=== PATIENT | female | born 1980 | race Caucasian/White ===

== ENCOUNTER → 2024-03-05 16:21 | Outpatient (REF) | payer OTHER, SELFPAY | LOC: PAVMRI 16:21 | PROVIDERS: ATTENDING PHYSICIAN Orthopaedic Surgery; FAMILY PHYSICIAN Physician Assistant Medical | DX: M54.50 Low back pain, unspecified (principal) | CPT/HCPCS: 72148 ==

== ENCOUNTER 2024-07-29 14:14 | Emergency (ER) | payer OTHER, SELFPAY ==
[2024-07-29 14:27] VITALS: BP 152/103
[2024-07-29 14:48] LABS: % Basophils 0.5 % (0-2); % Immature Granulocytes 0.5 % (0-0.5); % Lymphocytes 24.5 % (20.5-51.1); % Monocytes 5.7 % (1.7-9.3); % Neutrophils 67.8 % (42.2-75.2); Absolute Basophils 0.1 10^3/uL (0-0.2); Absolute Eosinophils 0.1 10^3/uL (0-0.7); Absolute Immature Granulocytes 0.1 10^3/uL (0-0.05); Absolute Lymphocytes 2.7 10^3/uL (1.2-3.4); Absolute Monocytes 0.6 10^3/uL (0.1-0.6); Absolute Neutrophils 7.5 10^3/uL (1.4-6.5); Hematocrit 40.2 % (37.0-47.0); Hemoglobin 13.9 g/dL (12.0-16.0); Mean Corp Hgb Conc. 34.6 g/dL (33.0-37.0); Mean Corpuscular Hgb 30.3 pg (27.0-31.0); Mean Corpuscular Volume 87.8 fL (81.0-99.0); Mean Platelet Volume 8.8 fL (7.4-10.4); Nucleated Red Blood Cells % 0 %; Platelet Count 402 10^3/uL (130-400); Red Blood Cell Count 4.58 10^6/uL (4.20-5.40); Red Cell Dist. Width 12.7 % (11.5-14.5)
[2024-07-29 15:08] LABS: Troponin I < 0.012 ng/ml
[2024-07-29 15:09] LABS: ALT (SGPT) 27 U/L (0-35); AST (SGOT) 26 U/L (14-36); Albumin 4.3 g/dl (3.5-5.0); Alkaline Phosphatase 96 U/L (38-126); Blood Urea Nitrogen 10 mg/dl (7-17); Calcium 10.1 mg/dl (8.4-10.2); Carbon Dioxide 29 mmol/L (22-30); Chloride 104 mmol/L (98-107); Glucose 98 mg/dl (70-99); Potassium 4.2 mmol/L (3.5-5.1); Sodium 140 mmol/L (135-145); Total Bilirubin 0.6 mg/dl (0.2-1.3); Total Protein 7.8 g/dl (6.3-8.2); eGFR > 60.00
[2024-07-29 16:20] VITALS: BP 133/88
--- NOTE | 2024-07-29 17:02 | ED.GENMED ---
History of Present Illness
General
Chief Complaint: Chest Pain
Source: patient
Exam Limitations: none
Time Seen by Provider: 07/29/24 16:20
Nursing documentation reviewed up to this point in time: agreed with
History of Present Illness
History of Present Illness:
43-year-old female with history of GERD, esophagitis, anxiety/depression, PTSD, migraines presents for mid to right chest pain off and on for the past 2 weeks but became constant today. She states while she was at work she felt 'out of it and
started getting stabbing pains in the mid chest area. She states now the area feels 'sore.' She states she has been fatigued and has been sleeping more. She states while sitting at work she felt 'disconnected' and the chest pain got worse. She
went to urgent care and they called EMS who brought her here.
She denies any overuse or injury. She denies feeling lightheaded or dizzy. She denies N/V/D/C. She denies abdominal pain. She denies UTI symptoms.
She did fly to [place] and back 2 weeks ago
No known sick contacts
She denies any aggravating or relieving factors.
Past History
Past History
ED Past Medical History: GERD, Psychiatric (Anxiety/depression, PTSD), Other (Obstipation, diarrhea, or urination. ) and Other (GERD, esophagitis)
ED Past Surgical History: Other (Stye)
Social History
Tobacco: Non-smoker
Alcohol: None
Personal:
Living: with family
Employment: Employed
Review of Systems
Review of Systems
Allergies reviewed?: Yes
All Other Systems: ROS reviewed and negative except as documented in HPI and ROS
Constitutional: Reports fatigue; Denies fever
EENT: Denies sore throat
Respiratory: Denies trouble breathing
Cardiac: Reports chest pain; Denies diaphoresis or palpitations
ABD/GI: Denies abdominal pain, nausea, vomiting, diarrhea, constipated or anorexia
: Denies dysuria, frequency or difficulty voiding
Musculoskeletal: Reports no symptoms
Skin: Reports no symptoms
Neurological: Reports no symptoms
Phy Exam
Physical Exam
Physical Exam:
GENERAL: No acute distress. A&Ox3.
CONSTITUTIONAL: Afebrile.
EYES: clear, conjunctivae normal
ENMT: moist mucus membranes, Pharynx nl
RESPIRATORY: Regular respirations, nonlabored, lungs clear.
CARDIOVASCULAR: Regular rate and rhythm, no murmurs, no rubs.
GI: Soft, nontender, normal BS
MUSCULOSKELETAL: Pain mid to lower right sternal costal border immediately reproducible with palpation. Moves with ease. Well perfused.
SKIN: Warm, dry, pink
PSYCH: Normal mood and affect. Well kept, interactive and appropriate
NEUROLOGIC: Awake, alert and oriented. No focal neurological deficits
Scores
Heart Score for Chest Pain Patients
STEMI patient?: Not applicable
Course
Orders/Labs/Results
Orders:
Orders
07/29/24 14:21
ECG [Electrocardiogram (*1)] Urgent
Reason for Study: Chest Pain
EKG- Treatment ONCE
07/29/24 14:36
Complete Blood Count/With Diff Urgent
Comprehensive Metabolic Panel Urgent
Troponin I Urgent
Abnormal Lab Results
07/29/24
14:36
WBC 11.0 H 10^3/uL
(4.8-10.8)
Plt Count 402 H 10^3/uL
(130-400)
Abs Immat Gran (auto) 0.1 H 10^3/uL
(0-0.05)
Absolute Neuts (auto) 7.5 H 10^3/uL
(1.4-6.5)
Creatinine 0.5 L mg/dL
(0.6-1.0)
07/29/24 14:36
07/29/24 14:36
Vital Signs
Initial and Last Documented VS:
Initial Vital Signs
Temp Pulse Resp BP Pulse Ox
98.0 F 73 20 152/103 95
07/29/24 14:27 07/29/24 14:27 07/29/24 14:27 07/29/24 14:27 07/29/24 14:27
Last Documented Vital Signs
Temp Pulse Resp BP Pulse Ox
98.0 F 73 17 133/88 99
07/29/24 14:27 07/29/24 16:30 07/29/24 16:30 07/29/24 16:20 07/29/24 17:27
MDM/Problems Addressed
Differential Diagnosis Includes:
ACS, IA, musculoskeletal pain, GERD
MDM/Problems Addressed:
43-year-old female with history of GERD, esophagitis, anxiety/depression, PTSD, migraines presents for mid to right chest pain off and on for the past 2 weeks but became constant today. She states while she was at work she felt 'out of it and
started getting stabbing pains in the mid chest area. She states now the area feels 'sore.' She states she has been fatigued and has been sleeping more. She states while sitting at work she felt 'disconnected' and the chest pain got worse. She
went to urgent care and they called EMS who brought her here.
She denies any overuse or injury. She denies feeling lightheaded or dizzy. She denies N/V/D/C. She denies abdominal pain. She denies UTI symptoms.
She did fly to [place] and back 2 weeks ago
No known sick contacts
She denies any aggravating or relieving factors.
Afebrile, NAD
EKG:NSR
CBC normal
CMP normal
Troponin normal
This is clearly musculoskeletal pain as it is immediately reproducible at the right costosternal border. Patient now states she has had costochondritis in the past and it feels similar.
She has also had GERD in the past and is requesting something to take for that. Rx for Protonix sent to her pharmacy.
*EKG
EKG Intrepretation Date: 07/29/24
Interpretation: normal
Heart Rate: 61
Rate: normal
Rhythm: sinus
Warner: normal axis
Interval: normal interval
QRS Pattern: normal QRS
Ischemia: no ischemia
*Critical Care Note
Total Time (30-74mins, 75-104mins- exclusive of procedures): Not Applicable
ED Attending Note
-
Portions of this chart may have been created with voice recognition software.� Occasional wrong word or��sound alike� substitutions may have occurred due to the inherent limitations of voice recognition software.
Discharge Plan
Departure
Patient Disposition: Home (Routine Discharge)
Date of Disposition: 07/29/24
Time of Disposition: 17:08
Patient with high blood pressure during this ER visit?: No
Condition: Good
Discharge Problem:
Acute costochondritis
Instructions: Costochondritis, Chest Pain That Is Not Caused by the Heart (DC), Acid Reflux and GERD in Adults (DC)
Prescriptions:
New
omeprazole 40 mg capsule,delayed release(DR/EC)
40 mg PO DAILY Qty: 30 0RF
No Action
sertraline [Zoloft] 100 mg Tablet
200 mg PO DAILY
prazosin 5 mg Capsule
5 mg PO HS
lorazepam [Ativan] 0.5 mg Tablet
0.25 mg PO PRN PRN (Reason: ANXIETY)
risperidone 1 mg Tablet
1.5 mg PO HS
prazosin 2 mg Capsule
2 mg PO DAILY
Referrals:
Chika Cao PA-C [Family Provider] - Call in 1-3 days for appt
Stand Alone Forms: Return to Work
Activity Restrictions/Additional Instructions:
As we discussed, I sent a prescription to your pharmacy for omeprazole, it may be [id number]. Try that when you have the reflux
Your exam is most consistent with costochondritis. Ibuprofen 600 mg, with food, up to 3 times a day as needed for pain. Avoid activities that aggravate the pain.
Interventions
Interventions:
*Risk Screen - Suicide Last Done: 07/29/24 14:27
*General Assessment Last Done: 07/29/24 14:27
*Neglect/Abuse Screening Last Done: 07/29/24 17:27
*ED- Fall Risk Assessment Last Done: 07/29/24 17:27
*ED COVID-19 Vaccine History Last Done: 07/29/24 17:27
*Nursing Disposition Last Done: 07/29/24 17:29
ED- Cardiac Assessment Last Done: 07/29/24 17:27
Discharge Date and Time
Discharge Date/Time: 07/29/24 17:30
Print Language: URDU
== END 2024-07-29 17:30 | disposition home or self-care (01) ==
LOC: EMR 14:14
PROVIDERS: Student in an Organized Health Care Education/Training Program; EMERGENCY PHYSICIAN Emergency Medicine; FAMILY PHYSICIAN Physician Assistant Medical
DX: M94.0 Chondrocostal junction syndrome [Tietze] (principal); K21.00 Gastro-esophageal reflux disease with esophagitis, without bleeding
CPT/HCPCS: 99284; 80053; 84484; 85025; 93005